=== PATIENT | male | born 1955 | race Caucasian/White ===

== ENCOUNTER 2017-09-17 05:41 | Day surgery (SDC) | payer OTHER ==
[~2017-09-17] VITALS: Ht 172.7 cm; Wt 149.7 kg
--- NOTE | ~2017-09-17 | EKG ---
[address] [address] ELECTROCARDIOGRAM REPORT Name: DON COOPER Room #: 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
--- NOTE | ~2017-09-17 | O ---
[facility] [place] [address] OPERATIVE REPORT Name: ALVAROPAXTONDON Room #: [facility]..#: [id number] Admission: 09/17/17 Attend Phys: Danae Hilton, Discharge: 09/17/17 Date of : 57 Report #: [id number] THIS REPORT FOR: //name// CC: Rahul Hilton DATE OF SERVICE: 09/17/2017 PREOPERATIVE DIAGNOSIS: Left carpal tunnel syndrome. POSTOPERATIVE DIAGNOSIS: Left carpal tunnel syndrome. PROCEDURE PERFORMED: Left open carpal tunnel release. SURGEON: Danae Hilton MD ANESTHESIA: Local MAC anesthesia. ESTIMATED BLOOD LOSS: Minimal. TOURNIQUET TIME: 13 minutes. COMPLICATIONS: None. CONDITION: Stable. DISPOSITION: Recovery room. INDICATIONS: The patient is a 61-year-old male with the above-mentioned diagnosis. He elects for operative treatment. The risks, benefits, alternatives and complications were discussed, including but were not limited to infection, damage to vessels or nerves, incomplete relief of his symptoms. Informed consent was obtained. The correct extremity was identified and labeled by myself after verbal confirmation of the patient as well as visual confirmation and signed informed consent. DESCRIPTION OF PROCEDURE: The patient brought to the operating room and placed on the operating table in supine position. He received preoperative antibiotics. Tourniquet was placed over padding. The patient's left upper extremity was sterilely prepped and draped in the usual fashion. A final timeout was taken to verify the correct patient, operative procedure, operative site, all concurred. After adequate sedation was achieved, approximately total of 8 mL of mixture of 0.25% Marcaine and 1% lidocaine was injected into the subcutaneous tissue at the proposed incision site. The entire procedure was done with a 3.5 times loupe magnification. Next, the arm was elevated, exsanguinated and tourniquet inflated. Next, a 2.5 cm incision was made over [address] [address] OPERATIVE REPORT Name: DON COOPER Room #: [facility]..#: [id number] Admission: 09/17/17 Attend Phys: Danae Hilton, Discharge: 09/17/17 Date of : 57 Report #: [id number] the carpal tunnel in line with the ring and long finger webspace. Dissection was carried down through subcutaneous tissue with tenotomy scissors. In the mid portion of the incision, a 15 blade was used to incise the very thick transverse carpal ligament. The very thick transverse carpal ligament was transected proximally from the antebrachial fascia of the forearm all the way through the fat in the palm. The incision was ulnar to the course of median nerve to decrease postoperative scarring. The nerve was evaluated and looked to be in good condition. The wound was thoroughly irrigated. Skin was closed with 4-0 nylon suture. Wound was dressed with Adaptic and sterile gauze. He was placed in a bulky dressing. All fingers were pink with brisk capillary refill at the conclusion of the case after deflation of the tourniquet. All sponge and needle counts were correct. The patient transferred to postoperative recovery room in stable condition. By: [id number] Danae Hilton MD /nt
[~2017-09-17 05:41] MED LIST: LOSARTAN-HCTZ1 EAC3 PO
[2017-09-17 09:17] LABS: CALCIUM 9.1 mg/dL (8.5-10.1); CREATININE 0.8 mg/dL (0.7-1.3); POTASSIUM 3.7 mmol/L (3.5-5.1)
[2017-09-17 09:33] VITALS: BP 125/78
[2017-09-17 11:42] VITALS: BP 125/78
== END 2017-09-17 12:25 | disposition home or self-care (01) ==
LOC: OR 05:41 → TBA 05:41 → OR 12:25
PROVIDERS: Orthopaedic Surgery Hand Surgery
DX: G56.02 Carpal tunnel syndrome, left upper limb (principal); I10 Essential (primary) hypertension; G47.33 Obstructive sleep apnea (adult) (pediatric); E78.00 Pure hypercholesterolemia, unspecified; F17.210 Nicotine dependence, cigarettes, uncomplicated; Z87.19 Personal history of other diseases of the digestive system; Z79.899 Other long term (current) drug therapy; Z98.890 Other specified postprocedural states
CPT/HCPCS: 50010; 50101; 50386; 56526; 57006; 57091; 62110; 62850; 70005